=== PATIENT | female | born 1955 | race Caucasian/White ===

== ENCOUNTER 2016-12-21 03:31 | Emergency (ER) | payer SELFPAY ==
[~2016-12-21] VITALS: Ht 172.7 cm; Wt 77.0 kg
[~2016-12-21 03:31] MED LIST: METF500 PO
[2016-12-21 03:32] VITALS: BP 123/53; PULSE 94; RESP 16; TEMP 97.7; O2SAT 96
--- NOTE | 2016-12-21 05:19 | RADRPT ---
EXAM DATE/TIME: 12/21/2016 05:09 [facility] COMPARISON: No previous studies available for comparison. INDICATIONS : Fall. Right hand pain. MEDICAL HISTORY : None. SURGICAL HISTORY : None. ENCOUNTER: Initial ACUITY: 3 days PAIN SCORE: 6/10 LOCATION: Right upper extremity FINDINGS: Three view examination of the right hand demonstrates no soft tissue swelling, dislocation, or fractu re. The carpal bones appear intact. The interphalangeal and metacarpophalangeal joints are intact. Bony mineralization is normal. CONCLUSION: No acute fracture. Jason John MD on December 21, 2016 at 5:17 Board Certified Radiologist. This report was verified electronically.
--- NOTE | 2016-12-21 05:20 | RADRPT ---
EXAM DATE/TIME: 12/21/2016 05:11 This report includes an Addendum and supersedes previous reports for this exam. [facility] COMPARISON: No previous studies available for comparison. INDICATIONS : Fall. Left knee pain. MEDICAL HISTORY : None. SURGICAL HISTORY : None. ENCOUNTER: Initial ACUITY: 3 days PAIN SCORE: 8/10 LOCATION: Left lateral FINDINGS: Four view examination of the left knee demonstrates no evidence of fracture or dislocation. Bony min eralization is normal. The articular surfaces are intact. The suprapatellar soft tissues have a nor mal configuration. Chondrocalcinosis. Soft tissue swelling. CONCLUSION: 1. Soft tissue swelling without fracture. 2. Chondrocalcinosis. Jason John MD on December 21, 2016 at 5:18 Board Certified Radiologist. This report was verified electronically. ADDENDUM: Questionable nondisplaced fracture proximal fibula. Jason John MD on December 21, 2016 at 5:42 Board Certified Radiologist. This report was verified electronically.
[2016-12-21] MEDS ORDERED: DICL75TA PO (05:22)
[2016-12-21] MEDS ORDERED: HYDR-3533 PO (05:22)
[2016-12-21] MEDS ORDERED: ACETAMINOPHEN/HYDROcodone 325 MG/5 MG TAB PO ONE (05:30)
[2016-12-21] MEDS ORDERED: IBUPROFEN 800 MG TAB PO ONE (05:30)
--- NOTE | 2016-12-21 05:33 | PD ---
HPI Chief Complaint: Injury Time Seen by Provider: 05:27 Travel History International Travel<30 days: No Contact w/Intl Traveler<30days: No Traveled to known affect area: No History of Present Illness HPI 61-year-old white female presents to emergency Department with complaints of left knee and right hand pain after a fall on the December. She states that she had tripped and fallen striking both knees and both hands. She states that she's had worsening pain in her right palm as well as her left knee. The right knee to a lesser extent. She states that she has tried to treat herself at home with ice and elevation. She went back to work yesterday but had extreme difficulty ambulating and performing her job. She presents to the ER for evaluation. She denies any injury to her head, neck or back. She denies any numbness or tingling. She states that she has difficulty in relating due to pain. Pain is moderate but can be severe at times. She is up-to-date with immunizations. PFSH Past Medical History Bipolar Disorder: Yes Anxiety: Yes Depression: Yes Cardiovascular Problems: Yes High Cholesterol: Yes Diabetes: Yes (METFORMIN) Patient Takes Glucophage: Yes Diminished Hearing: No GERD: Yes Genitourinary: No Hepatitis: Yes (Hep C) Hypertension: Yes Musculoskeletal: No Neurologic: Yes Psychiatric: Yes Reproductive: No Respiratory: Yes (BRONCHITIS) Myocardial Infarction: No Triglycerides - High: Yes Tetanus Vaccination: < 5 Years PNEUMOCCOCAL Vaccine (Year): 2 Menopausal: Yes : 3 Para: 1 Miscarriage: 1 : 2 Past Surgical History Abdominal Surgery: Yes (ADHESIONS REMOVED ) Oral Surgery: Yes (TMJ REALIGNMENT ) Other Surgery: Yes (laproscopy 1977) Social History Alcohol Use: Yes (3 x week) Tobacco Use: Yes (>1 PPD) Substance Use: No Allergies-Medications (Allergen,Severity, Reaction): Coded Allergies: Codeine (Verified Adverse Reaction, Mild, VOMITING, 07/20/15) Reported Meds & Prescriptions Reported Meds & Active Scripts Active Lortab (Hydrocodone-Acetaminophen) 5-325 Mg Tab 1 Tab PO Q6H PRN Diclofenac Sodium DR (Diclofenac Sodium) 75 Mg Tabdr 75 Mg PO BID Glucophage 500 mg (Metformin HCl) 500 Mg Tab 500 Mg PO BIDPC 30 Days Review of Systems Except as stated in HPI: all other systems reviewed are Neg Physical Exam Narrative GENERAL: Well-developed, well-nourished in no apparent distress. Nontoxic appearing. HEAD: Normocephalic, atraumatic. EYES: Pupils equal round and reactive. Extraocular motions intact. No scleral icterus. No injection or drainage. ENT: Nose clear. Throat without erythema, tonsillar hypertrophy or exudate. Uvula midline. Airway patent. NECK: Trachea midline. Supple, nontender, moves head freely. No central bony tenderness or spasm. CARDIOVASCULAR: Regular rate and rhythm without murmurs, gallops, or rubs. RESPIRATORY: Clear to auscultation. Breath sounds equal bilaterally. No wheezes , rales, or rhonchi. GASTROINTESTINAL: Abdomen soft, non-tender, nondistended. No hepato-splenomegaly , or palpable masses. No guarding. EXTREMITIES: Examination the right upper extremity reveals pain across the hypothenar eminence as well as the thenar eminence. Mild swelling and mild ecchymosis to the thenar eminence. No pain in the thumb or fingers. No pain in the dorsal or volar wrist. No anatomical snuffbox pain. No pain in the elbow or shoulder. Left upper extremity is unremarkable. Median/ulnar/radial nerves intact. Both lower extremities have soft tissue tenderness over the patellas. The left is much greater than right. The skin is intact on the right. The left knee has slight abrasion with ecchymosis. Patient's right knee has no gross instability. She has full range of motion. The left knee has limited flexion but has full extension. There is no instability. She does complain of pain with medial and lateral collateral ligament testing but there is no gross instability. Patient does have exquisite tenderness over the proximal fibular head as well as over the patella. No pain on the medial aspect. No anterior posterior draw. No pain in the hip, ankle or foot. BACK: Nontender without deformity. No flank tenderness. NEUROLOGICAL: Awake, alert and oriented x 3 .Cranial nerves grossly intact. Motor and sensory grossly within normal limits. Normal speech. Data Data Last Documented VS Vital Signs Date Time Temp Pulse Resp B/P Pulse Ox O2 Delivery O2 Flow Rate FiO2 12/21/16 03:32 97.7 94 16 123/53 96 Room Air Orders Hand, Complete ([id number]) (12/21/16 04:27) Knee, Complete (4vws) (12/21/16 04:27) Splint Or Brace Apply/Monitor (12/21/16 05:20) Crutches (12/21/16 05:20) Ibuprofen (Motrin) (12/21/16 05:30) Acetamin-Hydrocod 325-5 Mg ([place] 5-325 (12/21/16 05:30) MDM Medical Decision Making Medical Screen Exam Complete: Yes Emergency Medical Condition: Yes Medical Record Reviewed: Yes Interpretation(s) Right hand: Negative for acute fracture. Left knee: Patient has a proximal fibular fracture. Positive swelling with small joint effusion. Differential Diagnosis MDM: High Differential diagnoses: Fracture, sprain, strain, dislocation, contusion, neurovascular injury Narrative Course Patient's given canvas knee splint, crutches, Lortab 5 and Motrin 800 mg by mouth. This is left proximal fibula fracture, left knee contusion, right hand contusion Diagnosis Primary Impression: Fracture of left proximal fibula Qualified Code: S82.832A - Other closed fracture of proximal end of left fibula, initial encounter Additional Impressions: Contusion of left knee Qualified Code: S80.02XA - Contusion of left knee, initial encounter Contusion of right hand Qualified Code: S60.221A - Contusion of right hand, initial encounter Patient Instructions: General Instructions, Narcotic given in the ED Departure Forms: Tests/Procedures, Work Release Special Instructions: No work 1 week. Additional Instructions: Rest. Elevation. Ice packs for the next 3 days. Knee immobilizer and crutches. No weight-bearing and then progress to weight-bearing as tolerated. Medications as directed Follow-up with an orthopedist and your doctor in one week. Return to the ER if any problems Med/Other Pt SpecificInfo: Prescription(s) given Scripts Hydrocodone-Acetaminophen (Lortab)5-325 Mg Tab1 Tab PO Q6H PRN (PAIN) #20 TAB Prov:Day Bagley MD 12/21/[address] 75 Mg Tabdr75 Mg PO BID #20 TAB Prov:Day Bagley MD 12/21/16 Disposition: 01 DISCHARGE HOME Condition: Stable King Hilliard Dec 21, 2016 05:33
== END 2016-12-21 06:05 | disposition home or self-care (01) ==
LOC: NEPD 03:31
DX: M11.262 Other chondrocalcinosis, left knee (principal); S80.02XA Contusion of left knee, initial encounter; S60.221A Contusion of right hand, initial encounter; E11.9 Type 2 diabetes mellitus without complications; I10 Essential (primary) hypertension; E78.00 Pure hypercholesterolemia, unspecified; F41.9 Anxiety disorder, unspecified; F31.9 Bipolar disorder, unspecified; W01.0XXA Fall on same level from slipping, tripping and stumbling without subsequent striking against object, initial encounter
CPT/HCPCS: 73130; 73564; 99284; E0113; L1830

== ENCOUNTER 2017-11-01 08:10 | Emergency (ER) | payer OTHER ==
[~2017-11-01] VITALS: Ht 172.7 cm; Wt 79.5 kg
[~2017-11-01 08:10] MED LIST changes: +DICL75TA PO; +HYDR-3533 PO
[2017-11-01 08:27] VITALS: BP 167/73; PULSE 97; RESP 18; TEMP 99; O2SAT 97
[2017-11-01 08:38] VITALS: BP 149/65; PULSE 89; RESP 22; O2SAT 94
--- NOTE | 2017-11-01 09:16 | RADRPT ---
EXAM DATE/TIME: 11/01/2017 09:00 [facility] COMPARISON: No previous studies available for comparison. INDICATIONS : Cough and shortness of breath. MEDICAL HISTORY : None. SURGICAL HISTORY : None. ENCOUNTER: Initial ACUITY: 4 - 6 days PAIN SCORE: 4/10 LOCATION: Bilateral chest FINDINGS: PA and lateral views of the chest demonstrate the lungs to be symmetrically aerated without evidence of mass, infiltrate or effusion. The cardiomediastinal contours are unremarkable. Osseous structure s are intact. CONCLUSION: No acute cardiopulmonary disease. Og Mcintosh MD on November 01, 2017 at 9:15 Board Certified Radiologist. This report was verified electronically.
[2017-11-01] MEDS ORDERED: HUMIBIDDM PO ×2 (09:30→09:32)
[2017-11-01] MEDS ORDERED: AZIT250T3 PO ×2 (09:30→09:32)
--- NOTE | 2017-11-01 09:31 | PD ---
HPI Chief Complaint: Cold / Flu Symptoms Time Seen by Provider: 08:34 Travel History International Travel<30 days: No Contact w/Intl Traveler<30days: No Traveled to known affect area: No History of Present Illness HPI Is a 62-year-old female smoker presents emergency department with cough congestion for the past 3-4 days, she also is endorsing body aches all over. She states that the last time she had symptoms similar was the flu and thinks that she might have caught it again. She did not get a flu shot this year. She is a pack per day smoker. No shortness of breath no chest pain no abdominal pain nausea vomiting diarrhea. States symptoms for the past 3-4 days , gradually worsening, mild in severity, context as above. PFSH Past Medical History Bipolar Disorder: Yes Anxiety: Yes Depression: Yes Cardiovascular Problems: Yes High Cholesterol: Yes Diabetes: Yes (METFORMIN) Patient Takes Glucophage: Yes Diminished Hearing: No GERD: Yes Genitourinary: No Hepatitis: Yes (Hep C) Hypertension: Yes Musculoskeletal: No Neurologic: Yes Psychiatric: Yes Reproductive: No Respiratory: Yes (BRONCHITIS) Myocardial Infarction: No Triglycerides - High: Yes PNEUMOCCOCAL Vaccine (Year): 2 Menopausal: Yes : 3 Para: 1 Miscarriage: 1 : 2 Past Surgical History Abdominal Surgery: Yes (ADHESIONS REMOVED ) Oral Surgery: Yes (TMJ REALIGNMENT ) Other Surgery: Yes (laproscopy 1977) Social History Alcohol Use: Yes (3 x week) Tobacco Use: Yes (>1 PPD) Substance Use: No Allergies-Medications (Allergen,Severity, Reaction): Coded Allergies: codeine (Unverified Adverse Reaction, Mild, VOMITING, 01/27/17) Reported Meds & Prescriptions Reported Meds & Active Scripts Active Mucinex DM (Dextromethorphan-Guaifenesin) 30-600 Mg Tab 1 Tab PO BID PRN 7 Days Azithromycin 250 Mg Tab 250 Mg PO DIRECTED Take 2 tabs (500 mg) on day 1 then 1 tab daily x 4 days. Lortab (Hydrocodone-Acetaminophen) 5-325 Mg Tab 1 Tab PO Q6H PRN Diclofenac Sodium DR (Diclofenac Sodium) 75 Mg Tabdr 75 Mg PO BID Glucophage 500 mg (Metformin HCl) 500 Mg Tab 500 Mg PO BIDPC 30 Days Review of Systems Except as stated in HPI: all other systems reviewed are Neg Physical Exam Narrative GENERAL: Well-nourished, well-developed patient. Smells heavily of cigarette smoke peer SKIN: Focused skin assessment warm/dry. HEAD: Normocephalic. Atrial EYES: No scleral icterus. No injection or drainage. ENT: TMs clear bilaterally, oropharynx clear moist NECK: Supple, trachea midline. No JVD or lymphadenopathy. CARDIOVASCULAR: Regular rate and rhythm without murmurs, gallops, or rubs. RESPIRATORY: Breath sounds equal bilaterally. No accessory muscle use. No wheezes rales or rhonchi, no increased work of breathing, speaks in full sentences GASTROINTESTINAL: Abdomen soft, non-tender, nondistended. MUSCULOSKELETAL: No cyanosis, or edema. BACK: Nontender without obvious deformity. No CVA tenderness. Data Data Last Documented VS Vital Signs Date Time Temp Pulse Resp B/P (MAP) Pulse Ox O2 Delivery O2 Flow Rate FiO2 11/01/17 09:54 11/01/17 08:47 96 Nasal Cannula 2.00 11/01/17 08:38 89 22 11/01/17 08:27 99.0 Orders Orders Chest, Pa & Lat (11/01/17 ) Influenzae A/B Antigen (11/01/17 08:47) Ed Discharge Order (11/01/17 09:32) MDM Medical Decision Making Medical Screen Exam Complete: Yes Emergency Medical Condition: Yes Differential Diagnosis URI, pneumonia, bronchitis, severe bacterial illness highly unlikely. Narrative Course Patient room to the emergency department, she appears well in no obvious distress, chest x-rays reassuring. Probably early bronchitis given her smoking history, discussed symptomatic management follow-up with primary care physician and discussed smoking cessation at length given that smoking leads to several adverse health outcomes. She verbalized understanding agreement. Discussed return to ED criteria follow-up with a primary care physician. Diagnosis Primary Impression: URI (upper respiratory infection) Qualified Codes: J06.9 - Acute upper respiratory infection, unspecified Referrals: [facility] Patient Instructions: Acute Bronchitis (DC), General Instructions, How to Stop Smoking (DC) Additional Instructions: Expect to be sick for 2 weeks total. This can last longer in smokers. Stop Smoking. Smoking leads to lung disease, heart disease and cancer. Med/Other Pt SpecificInfo: Prescription(s) given Scripts Dextromethorphan-Guaifenesin (Mucinex DM) 30-600 Mg Tab 1 TAB PO BID Y for CHEST CONGESTION AND/OR COUGH for 7 Days, #14 TAB 0 Refills Prov: Luis Krishnamurthy MD 11/01/17 Azithromycin (Azithromycin) 250 Mg Tab 250 MG PO DIRECTED for Infection, #6 TAB 0 Refills Take 2 tabs (500 mg) on day 1 then 1 tab daily x 4 days. Prov: Luis Krishnamurthy MD 11/01/17 Disposition: 01 DISCHARGE HOME Condition: Stable Luis Krishnamurthy MD November 01, 2017 09:31
== END 2017-11-01 09:56 | disposition home or self-care (01) ==
LOC: NEPC 08:10
DX: J06.9 Acute upper respiratory infection, unspecified (principal); R05 Cough; M79.1 Myalgia; E11.9 Type 2 diabetes mellitus without complications; I10 Essential (primary) hypertension; K21.9 Gastro-esophageal reflux disease without esophagitis; E78.5 Hyperlipidemia, unspecified; F17.200 Nicotine dependence, unspecified, uncomplicated; Z79.84 Long term (current) use of oral hypoglycemic drugs; Z86.79 Personal history of other diseases of the circulatory system; Z86.19 Personal history of other infectious and parasitic diseases; Z86.69 Personal history of other diseases of the nervous system and sense organs; Z86.59 Personal history of other mental and behavioral disorders
CPT/HCPCS: 71046; 87804; 99284